=== PATIENT | male | born 1955 | race Caucasian/White ===

== ENCOUNTER 2021-08-22 06:34 | Day surgery (SDC) | payer MEDICARE, BC ==
[~2021-08-22 06:34] MED LIST: Acetaminophen 500 MG Tab PO ONE; Dextrose 5%-Lactated Ringers 1,000 ML IV SCH; ceFAZolin 2 GM in Premix Bag 1 BAG IV ONE
[2021-08-22] MEDS ORDERED: Lidocaine 1% with EPINEPHrine 1:100,000 50 ML MDV ONE (06:40)
[2021-08-22] MEDS ORDERED: Bupivacaine 0.5% 50 ML MDV ONE (06:40)
[2021-08-22] MEDS ORDERED: Acetaminophen 500 MG Tab PO ONE (07:00)
[2021-08-22] MEDS ORDERED: fentaNYL 100 MCG/2 ML SDV ONE (07:08)
[2021-08-22] MEDS ORDERED: Midazolam 1 MG/ML 2 ML SDV ONE (07:08)
[2021-08-22] MEDS ORDERED: Propofol 200 MG/20 ML SDV ONE (07:08)
[2021-08-22] MEDS ORDERED: Lidocaine 0.5% 50 ML SDV ONE (07:25)
[2021-08-22] MEDS ORDERED: Dextrose 5%-Lactated Ringers 1,000 ML IV SCH (07:45)
[2021-08-22] MEDS ORDERED: ceFAZolin 2 GM in Premix Bag 1 BAG IV ONE (08:00)
== END 2021-08-22 10:05 | disposition home or self-care (01) ==
LOC: JP.SDS 06:34
PROVIDERS: ATTEND Surgery
DX: S60.352A Superficial foreign body of left thumb, initial encounter (principal); I10 Essential (primary) hypertension; E78.5 Hyperlipidemia, unspecified; E66.9 Obesity, unspecified; Z91.048 Other nonmedicinal substance allergy status; Z01.812 Encounter for preprocedural laboratory examination; Z20.822 Contact with and (suspected) exposure to COVID-19
CPT/HCPCS: 76000; J0690; J2250; J2704; J3010; J3490; U0002